=== PATIENT | female | born 1955 | race Caucasian/White ===

== ENCOUNTER → 2017-01-06 | Outpatient (CLI) | payer MEDICARE, OTHER | LOC: LAB.R 08:00 | PROVIDERS: ATTEND Obstetrics & Gynecology | DX: N77.1 Vaginitis, vulvitis and vulvovaginitis in diseases classified elsewhere (principal) | CPT/HCPCS: 87480; 87510; 87660 ==

== ENCOUNTER 2017-02-21 13:10 | Outpatient (CLI) | payer MEDICARE, OTHER ==
--- NOTE | 2017-02-22 13:02 | Mammography Report ---
DIGITAL SCREENING MAMMOGRAM: 02/21/2017 CLINICAL INDICATION: A 61-year-old, for screening. COMPARISON: 11/2014, 08/2013. TECHNIQUE: Routine CC and MLO projections were obtained of the breasts. FINDINGS: Scattered fibroglandular tissue is present within the breasts. There are no dominant latrell s, suspicious microcalcifications, or secondary signs of malignancy. In comparison to the previous st udies, there are no significant changes. ASSESSMENT: NO MAMMOGRAPHIC EVIDENCE OF MALIGNANCY. NO SIGNIFICANT INTERVAL CHANGES. RECOMMENDATION: Screening mammography is recommended annually. BIRADS category 1 - negative. STANDARD QUALIFYING STATEMENTS 1. This examination was reviewed with the aid of Computed-Aided Detection (CAD). 2. A negative or benign imaging report should not delay biopsy if clinically suspicious findings are present. Consider surgical consultation if warranted. More than 5% of cancers are not identified by i maging. 3. Dense breasts may obscure an underlying neoplasm. JOB #: [id number] EXT JOB #:[id number]
== END 2017-02-21 13:11 | disposition home or self-care (01) ==
LOC: DI 13:10
PROVIDERS: ATTEND Obstetrics & Gynecology
DX: Z12.39 Encounter for other screening for malignant neoplasm of breast (principal)
CPT/HCPCS: 77067

== ENCOUNTER 2017-03-21 08:33 | Day surgery (SDC) | payer MEDICARE, OTHER ==
[~2017-03-21 08:33] MED LIST: ceFAZolin 2 GM/50 ML 2 GM/50 ML BAG IV ONE
[2017-03-21] MEDS ORDERED: LACTATED RINGERS 1,000 ML IV ONE ×3 (08:45→10:40)
[2017-03-21] MEDS ORDERED: MIDAZOLAM 2 MG/2 ML VIAL ONE (09:27)
[2017-03-21] MEDS ORDERED: FAMOTIDINE 20 MG/50 ML 50 ML IV ONE (09:28)
[2017-03-21] MEDS ORDERED: BUPIVACAINE 0.5% PF 30 ML VIAL SUBQ ONE ×2 (10:33→11:05)
--- NOTE | 2017-03-21 11:26 | OPERATIVE REPORT ---
Operative Report - General Procedure Date: 03/21/17 Planned Procedure: Incisional herniorrhaphy with mesh Pre-Op Diagnosis: Incisional hernia Procedure Performed: Incisional herniorrhaphy with mesh Post Op Diagnosis: Incisional hernia - Procedure Note Primary Surgeon: Kadeem Seaman MD Anesthesia Provider: Kadeem Doshi MD Anesthesia Technique: General ET tube, Local (30 mL of half percent Marcaine) IV Fluids (mL): 250 Estimated Blood Loss (mL): 2 Complications: None. - Other Other Information/Narrative: OPERATIVE DESCRIPTION/REPORT: After verbal and written informed consent was obtained detailing the risks of infection, bleeding requiring transfusion with its risks, nerve injury, and , and after I met with the patient confirming the surgery and the site of the surgery, the patient was brought to the operative suite and placed supine on the operating table. Great care was taken to avoid pressure points to prevent pressure necrosis or nerve injury. Monitoring devices were applied along with TEDs and pneumatic compressive stockings (to prevent DVT). The patient received preoperative antibiotics for surgical prophylaxis. Dr. Kadeem Doshi sedated and anesthetized the patient for the entire procedure. The patient was prepped and draped in the usual sterile manner. With the patient draped my initials were clearly visible. A "time in" then confirmed that the patient was identified with 3 identifiers (name, date and medical record number), the history and physical was in the chart, the signed consent confirming the procedure was in the chart, the patient was in the correct position, the aforementioned prophylactic measures were in place or given, we had the correct personel and equipment to complete the procedure and that anesthesia, surgery and nursing were given an opportunity to express any concerns. With the agreement of everyone in the room, we proceeded with the operation. A vertical midline incision was made overlying the mass and dissection was carried down to the hernia sac using a combination of Metzenbaum scissors, scalpel, and Bovie electrocautery. The sac was cleared of overlying adherent tissue, and the fascial defect was delineated. The fascia was cleared of any adherent tissue for a distance 1.5 cm from the defect. The sac was resected using a combination of Metzenbaum scissors and Bovie electrocautery. The defect was closed using a piece of Proceed Ventral Patch (Lot#[id number], use by date 2018-10-05) sewing it in place using the supplied mesh "arms" to the fascia with interrupted 2-0 PDS. The fascia was then colsed over the mesh using a running 0 PDS suture. The subcutaneous tissues were copiously irrigated , and then closed using an interrupted 2-0 Vicryl. Meticulous hemostasis was obtained using Bovie electrocautery. The skin incision was approximated with a running 4-0 Monocryl. At this point a time out was performed that confirmed that all the counts were correct, the procedure that was performed, the blood loss, the IV fluids administered, and the patient s condition. A dressing was applied. Having tolerated the procedure well, the patient was subsequently extubated and taken to recovery room in good and stable condition.
[2017-03-21] MEDS ORDERED: GLYCOPYRROLATE 1 MG/5 ML VIAL IVP ONE (11:31)
[2017-03-21] MEDS ORDERED: LIDOCAINE-PF 2% 10 ML AMP SUBQ ONE (11:31)
[2017-03-21] MEDS ORDERED: ACETAMINOPHEN 1,000 MG/100 ML 100 ML IV ONE (11:31)
[2017-03-21] MEDS ORDERED: NEOSTIGMINE 1 MG/1 ML 10 ML MDV IVP ONE (11:31)
[2017-03-21] MEDS ORDERED: fentaNYL 100 MCG/2 ML VIAL IVP ONE (11:31)
[2017-03-21] MEDS ORDERED: PROPOFOL 200 MG/20 ML VIAL IVP ONE (11:31)
[2017-03-21] MEDS: HYDROmorphone 1 MG/ML SYRINGE ONE ×2 (11:40→12:01)
[2017-03-21] MEDS ORDERED: HYDROcod/ACETAM 5/325 MG TABLET ONE (12:30)
[2017-03-21 13:10] VITALS: BP 139/85
== END 2017-03-21 08:34 | disposition home or self-care (01) ==
LOC: SDS 08:33
PROVIDERS: ATTEND Surgery
PROC: 0WUF0JZ Supplement Abdominal Wall with Synthetic Substitute, Open Approach (ICD-10-PCS; principal; 2017-03-21 09:30)
DX: K43.2 Incisional hernia without obstruction or gangrene (principal); E78.5 Hyperlipidemia, unspecified; K21.9 Gastro-esophageal reflux disease without esophagitis
CPT/HCPCS: 49560; 49568; A9270; C1781; J0131; J0690; J1170; J7120